=== PATIENT | male | born 1950 | race Caucasian/White ===

== ENCOUNTER 2018-07-30 15:43 | Inpatient (IN) | payer OTHER, MEDICARE ==
--- NOTE | 2018-07-30 17:44 | EDPHY ---
H & P Stated Complaint: cut right finger with knief 10 days ago, increasing swelling/ pain Time Seen by Provider: 07/30/18 17:28 HPI/ROS: CHIEF COMPLAINT: Right index Finger infection HISTORY OF PRESENT ILLNESS: 67-year-old immunocompetent male with out-of-date tetanus, right-hand dominant states that 10 days ago when he was camping he sustained a laceration to his right index finger palmar aspect middle phalanx. Did not seek medical attention at that time. Over the past 7 days he has noted progressive erythema pain and swelling. He has been seen by his PCP as well as a free-standing emergency department, has been on a course of Keflex for the past 3-4 days and notes progressive swelling pain. He denies: Fever, chills, flu-like symptoms, nausea, vomiting, lymphangitic streaking. REVIEW OF SYSTEMS: 10 systems reviewed and negative with the exception of the elements mentioned in the history of present illness PAST MEDICAL & SURGICAL HISTORY: No history of immunocompromise/suppressed condition. Tetanus out-of-date. SOCIAL HISTORY:Single nonsmoker PHYSICAL EXAM (Prior to examination, patient consented to physical exam, hands were washed and my usual and customary physical exam procedures followed) 1) GENERAL: Well-developed, well-nourished, alert and oriented. Appears to be in no acute distress. Smiling cognitive appears well. 2) HEAD: Normocephalic, atraumatic 3) HEENT: Pupils equal, round, reactive to light bilaterally. Sclera anicteric. 4) NECK: Full range of motion, no meningeal signs. 5) LUNGS: Clear auscultation bilaterally, no wheezes, no rhonchi, no retractions. 6) HEART: Regular rate and rhythm, no murmur, no heave, no gallop. 7) ABDOMEN: No guarding, no rebound, no focal tenderness, negative McBurney's, negative Edouard's, negative Rovsing's, negative peritoneal sign, 8) MUSCULOSKELETAL: Right upper extremity: Right index finger positive kanavel sign, notably fusiform shape to finger, unable to actively or passively flex, pain along the flexor tendon sheath, pain with passive extension. Mild erythematous discoloration to the finger. No lymphangitic streaking. No epitrochlear or axillary adenopathy. Otherwise, Moving all extremities, no focal areas of tenderness, no obvious trauma. No peripheral edema or discoloration. 9) BACK: No CVA tenderness, no midline vertebral tenderness, no fluctuance, no step-off, no obvious trauma, no visual or palpable abnormality. 10) SKIN: No rash, no petechiae. 11) Psychiatric: Patient is oriented X 3, there is no agitation. DIFFERENTIAL DIAGNOSIS: In no particular order including but not limited to infectious flexor tenosynovitis, deep space infection, hand abscess - Personal History Current Tetanus/Diphtheria Vaccine: Unsure Current Tetanus Diphtheria and Acellular Pertussis (TDAP): Unsure - Medical/Surgical History Hx Asthma: No Hx Chronic Respiratory Disease: No Hx Diabetes: No Hx Cardiac Disease: No Hx Renal Disease: No Hx Cirrhosis: No Hx Alcoholism: No Hx HIV/AIDS: No Hx Splenectomy or Spleen Trauma: No Other PMH: gout - Social History Smoking Status: Never smoked Constitutional: Initial Vital Signs Temperature (C) 36.4 C 07/30/18 15:49 Heart Rate 94 07/30/18 15:49 Respiratory Rate 18 07/30/18 15:49 Blood Pressure 167/91 H 07/30/18 15:49 O2 Sat (%) 96 07/30/18 15:49 O2 Delivery Mode Room Air Allergies/Adverse Reactions: No Known Allergies Allergy (Verified 07/30/18 18:31) Home Medications: Medication Instructions Recorded Allopurinol [Allopurinol 300 MG 300 mg PO DAILY 07/30/18 (RX)] Amoxicillin/Clavulanate Pot 875 mg PO BID 07/30/18 [Augmentin 875 MG TAB (*)] Herbals/Supplements -Info Only 1 ea PO DAILY 07/30/18 Ibuprofen [Motrin (*)] 800 mg PO BID PRN 07/30/18 [place]-3 Fatty Acids [Fish Oil 1000 1,000 mg PO BID 07/30/18 mg (*)] Medical Decision Making - Diagnostics Imaging Results: Imaging Impressions Finger X-Ray 07/30/18 18:06 Impression: 1. Soft tissue swelling with no acute osseous findings. 2. Additional findings as above. Images reviewed myself ED Course/Re-evaluation: 5:41 p.m.: Patient has failed outpatient therapy, has positive kanavel sign. Recommended admission, will initiate antibiotic therapy with IV vancomycin as he has failed cephalosporin therapy. Will update tetanus. Will obtain x-ray, consult with hospitalist and hand surgeon. I saw this patient independently based on established practice protocols. Care of patient under supervision of secondary supervising physician Dr Elise with whom I discussed case. 6:35 p.m.: Left message with the circulating nurse for Dr. Prosper Armenta who is on-call for and surgery will call me back. 7:09 p.m.: Consultation with hospitalist Dr. Ocampo who will admit patient, request MRI be obtained. Awaiting call back from Dr. Prsoper Armenta 7:38 p.m.: Consultation with Dr. Prosper Armenta who will consult for hand surgery. 9:00 p.m.: Dr. Prosper Armenta has evaluated the patient the ER, recommend cancellation of the MRI as he will be taking the patient to the operating room in the morning. - Data Points Laboratory Results: Laboratory Results 07/30/18 17:45 07/30/18 17:45 07/30/18 07/30/18 17:45 17:45 WBC 8.33 10^3/uL 10^3/uL (3.80-9.50) RBC 4.81 10^6/uL 10^6/uL (4.40-6.38) Hgb 14.6 g/dL g/dL (13.7-17.5) Hct 42.4 % % (40.0-51.0) MCV 88.1 fL fL (81.5-99.8) MCH 30.4 pg pg (27.9-34.1) MCHC 34.4 g/dL g/dL (32.4-36.7) RDW 14.3 % % (11.5-15.2) Plt Count 216 10^3/uL 10^3/uL (150-400) MPV 9.8 fL fL (8.7-11.7) Neut % (Auto) 69.7 % % (39.3-74.2) Lymph % (Auto) 18.5 % % (15.0-45.0) Jack % (Auto) 7.6 % % (4.5-13.0) Eos % (Auto) 3.4 % % (0.6-7.6) Baso % (Auto) 0.4 % % (0.3-1.7) Nucleat RBC Rel Count 0.0 % % (0.0-0.2) Absolute Neuts (auto) 5.82 10^3/uL 10^3/uL (1.70-6.50) Absolute Lymphs (auto) 1.54 10^3/uL 10^3/uL (1.00-3.00) Absolute Monos (auto) 0.63 10^3/uL 10^3/uL (0.30-0.80) Absolute Eos (auto) 0.28 10^3/uL 10^3/uL (0.03-0.40) Absolute Basos (auto) 0.03 10^3/uL 10^3/uL (0.02-0.10) Absolute Nucleated RBC 0.00 10^3/uL 10^3/uL (0-0.01) Immature Gran % 0.4 % % (0.0-1.1) Immature Gran # 0.03 10^3/uL 10^3/uL (0.00-0.10) Sodium 137 mEq/L mEq/L (135-145) Potassium 3.9 mEq/L mEq/L (3.3-5.0) Chloride 101 mEq/L mEq/L (97-110) Carbon Dioxide 26 mEq/l mEq/l (22-31) Anion Gap 10 mEq/L mEq/L (8-16) BUN 20 mg/dL mg/dL (7-23) Creatinine 1.0 mg/dL mg/dL (0.7-1.3) Estimated GFR > 60 Glucose 85 mg/dL mg/dL (70-100) Calcium 9.8 mg/dL mg/dL (8.5-10.4) Medications Given: Discontinued Medications Vancomycin/Sodium Chloride (Vancomycin 1 Gm (Premix)) 250 mls @ 250 mls/hr IV EDNOW ONE PRN Reason: Protocol Stop: 07/30/18 19:20 Last Admin: 07/30/18 19:00 Dose: 250 mls Departure - Departure Disposition: [facility] Inpatient Acute Clinical Impression: Infectious tenosynovitis, Failure of outpatient treatment Condition: Fair
[2018-07-30 18:11] LABS: PLATELET COUNT 216 10^3/uL (150-400)
[2018-07-30] MEDS ORDERED: VANCOMYCIN HCL/NORMAL SALINE 250 ML IV ONE (18:21)
[2018-07-30] MEDS ORDERED: ACETAMINOPHEN 325 MG TAB PO PRN (19:49)
[2018-07-30] MEDS ORDERED: ONDANSETRON 4 MG/2 ML VIAL IVP PRN (19:49)
[2018-07-30] MEDS ORDERED: ZOLPIDEM TARTRATE 5 MG TAB PO PRN (19:49)
--- NOTE | 2018-07-30 20:55 | PDGENHP ---
History and Physical History and Physical: CC: Right 1st finger infection HISTORY: This patient cut his right 1st finger with a sharp object around 10 days ago, flexor aspect. He says the laceration looked deep and he saw white in the bottom of it. However he was able to move his finger full range of motion and with good strength. Gradually the finger begin to get a bit red and swollen. He was seen by his primary care doctor several days ago was prescribed Keflex which he took for 2 and half days. Following that he thought it might look worse so he went to a freestanding ER where he was given a prescription for Augmentin and told to stop the Keflex. At this point he has worsening swelling and pain and decreased range of motion of the finger with the pain and swelling progressing into the palmar aspect of the hand. He has had no fevers. The original laceration is closing and there is no drainage. ROS: A comprehensive 10 system review revealed no other significant findings PAST MEDICAL HISTORY: Gout Arthritis, is to have a total knee replacement done in the near future FAMILY MEDICAL HISTORY: No concerning illnesses he is aware of SOCIAL HISTORY: Very active No tobacco or significant alcohol MEDICATIONS: The patients list has been reconciled by our clinical pharmacist in the EMR. I have reviewed the list and ordered appropriate medicines. PHYSICAL EXAMINATION: Vital Signs: Mildly hypertensive otherwise normal Irrigation Teacher: Examination: General: alert, oriented, good mentation, relaxed Skin: warm, dry, good color, no rash HEENT: normal Neck: no mass or jvd Resps: relaxed Lungs: clear breath sounds Heart: regular, no murmur Abdomen: soft, nondistended, nontender, +BS, no mass Upper Extremities: The right index finger is remarkable for diffuse swelling, some mild skin discoloration with mottling, and some redness, with remarkable decreased range of motion at all joints in the finger though good range of motion at the wrist. There is some edema redness and tenderness on the palmar aspect at and proximal to the 1st finger MTP joint. I do not see anything that looks feels like a joint effusion per se. The original laceration is palmar aspect of the middle phalanx of the 1st finger and is healed closed. There is nothing that looks overtly necrotic. The wrist and forearm look okay Lower Extremities: no edema, warm No Bleeding or bruising Neurologic: normal speech/language, normal manager office services, no focal weakness IV site: looks normal LABORATORY DATA: Unremarkable CBC and chemistry RADIOLOGY STUDIES: I reviewed x-rays of the 1st finger right hand which show evidence of soft tissue edema but no free air and no bony abnormalities ASSESSMENT: * infection of right index finger progressing proximally to the hand, concern for tenosynovitis * unresponsive to outpatient antibiotics PLANS: * Inpatient admission indicated for need for ongoing IV antibiotic at this time * Blood cultures have been obtained; if there is fluid in the finger will want to have samples of that for culture as well * IV vancomycin has been started in the ER * I requested MRI and this was ordered by the ER but is pending * I reviewed with the ER staff also that would be good to have hand surgery involved at this time to formally assess his finger for any potential need for surgery I have reviewed the patient's case in detail with Mp Maguire of the emergency room
--- NOTE | 2018-07-30 21:09 | PDCONSULT ---
Biomass Technician Note: Exam Right Hand Significant swelling and erythema to index finger. Painful ROM. Distal neurovasculature intact. ASSESMENT/PLAN Infected Tenosynovitis Right Index Finger NPO Plan to do an I&D right Index Finger at 6:30AM tomorrow 07/31/18 Patient will be admitted under Hospital Team Infectious Disease should be consulted for post-op ABX follow-up We will have patient follow up at [facility] for post-op followup Bishop TEIXEIRA and Dr. Prosper Armenta (Orthopedic Surgery)
[2018-07-30] MEDS ORDERED: ACETAMINOPHEN 500 MG TAB PO ONE (21:11)
[2018-07-30] MEDS: OMEGA-3 FATTY ACIDS 1,000 MG CAP PO SCH (23:23)
[2018-07-30] MEDS: MELATONIN 3 MG TAB PO SCH (23:42)
[2018-07-30] MEDS: IBUPROFEN 800 MG TAB PO PRN (23:42)
[2018-07-31] MEDS ORDERED: POLYMYXIN B SULFATE 500,000 UNIT/10 ML SYR IRR ONE (05:02)
[2018-07-31] MEDS: VANCOMYCIN 1.25 GM in NS 250 ML IV SCH ×2 (05:37→18:12)
[2018-07-31] MEDS ORDERED: fentaNYL 100 MCG/2 ML INJ ONE ×2 (06:17→07:40)
[2018-07-31] MEDS ORDERED: MIDAZOLAM 2 MG/2 ML VIAL ONE (06:17)
[2018-07-31] MEDS ORDERED: PROPOFOL 200 MG/20 ML VIAL ONE (06:18)
--- NOTE | 2018-07-31 06:19 | PDANEPAE ---
ANE Past Medical History - Pulmonary History Hx Oxygen in Use at Home: No Hx Sleep Apnea: No Sleep Apnea Screening Result - Last Documented: Positive - Endocrine History Hx Diabetes: No - Chronic Pain History Chronic Pain: Yes ANE Review of Systems Review of Systems: ANE Patient History - Allergies Allergies/Adverse Reactions: No Known Allergies Allergy (Verified 07/30/18 18:31) - Home Medications Home Medications: Allopurinol [Allopurinol 300 MG (RX)] 300 mg PO DAILY 07/30/18 [Last Taken 07/30] Amoxicillin/Clavulanate Pot [Augmentin 875 MG TAB (*)] 875 mg PO BID 07/30/18 [ Last Taken 07/30/18 10:00] Herbals/Supplements -Info Only 1 ea PO DAILY 07/30/18 [Last Taken Unknown] Ibuprofen [Motrin (*)] 800 mg PO BID PRN 07/30/18 [Last Taken Unknown] [place]-3 Fatty Acids [Fish Oil 1000 mg (*)] 1,000 mg PO BID 07/30/18 [Last Taken 07/30/18 10:00] - NPO status NPO Since - Liquids (Date): 07/31/18 NPO Since - Liquids (Time): 00:05 NPO Since - Solids (Date): 07/31/18 NPO Since - Solids (Time): 00:05 - Smoking Hx Smoking Status: Never smoked JAILENE Labs/Vital Signs - Labs Result Diagrams: 07/30/18 17:45 07/30/18 17:45 - Vital Signs Blood Pressure: 135/86 Heart Rate: 72 Respiratory Rate: 18 O2 Sat (%): 96 Height: 170.18 cm Weight: 95.25 kg ANE Physical Exam - Airway Neck exam: FROM Mallampati Score: Class 2 Mouth exam: normal dental/mouth exam - Pulmonary Pulmonary: no respiratory distress - Cardiovascular Cardiovascular: regular rate and rhythym - ASA Status ASA Status: II ANE Anesthesia Plan Anesthesia Plan: GA w LMA
[2018-07-31] MEDS ORDERED: METOCLOPRAMIDE 10 MG/2 ML VIAL ONE (06:21)
[2018-07-31] MEDS ORDERED: LIDOCAINE 2% 100 MG/5 ML SYR ONE (06:22)
[2018-07-31] MEDS ORDERED: DEXAMETHASONE 4 MG/ML VIAL ONE (06:22)
[2018-07-31] MEDS ORDERED: oxyCODONE IR 5 MG TAB PO PRN (06:26)
[2018-07-31] MEDS ORDERED: NS 1,000 ML IV SCH (06:30)
[2018-07-31] MEDS ORDERED: fentaNYL 100 MCG/2 ML INJ IVP PRN (07:28)
[2018-07-31] MEDS ORDERED: ALBUTEROL 3 ML DEYVIAL IH PRN (07:28)
[2018-07-31] MEDS ORDERED: MEPERIDINE 25 MG/0.5 ML AMP IVP PRN (07:28)
[2018-07-31] MEDS ORDERED: NALOXONE HCL 0.4 MG/ML INJ IVP PRN (07:28)
[2018-07-31] MEDS ORDERED: HYDROCODONE/APAP 5/325 TAB PO PRN (07:28)
--- NOTE | 2018-07-31 07:28 | POSTANESTH ---
Post Anesthetic Evaluation Cardiovascular Status: Similar to Pre-Op Cond Respiratory Status: Similar to Pre-op Cond. Level of Consciousness/Mental Status: Mildly Sleepy, Arousable Pain Control: Adequate, Prn Tx Ordered Nausea/Vomiting Control: Adequate, Prn Tx Ordered Complications Possibly Related to Anesthesia: None Noted
[2018-07-31] MEDS: ALLOPURINOL 300 MG TAB PO SCH (09:41)
[2018-07-31] MEDS: OMEGA-3 FATTY ACIDS 1,000 MG CAP PO SCH ×2 (09:41→20:46)
--- NOTE | 2018-07-31 10:00 | ASMTCMCOM ---
CM Note CM Note Notes: Patient admitted for infectious tenosynovitis of the R index finger. He is POD #1 I&D and receiving IV antibiotics. ID will see him today. Patient is normally active and independent. Case Managment will follow for any potential discharge needs. Date Signed: 07/31/2018 09:59 AM Electronically Signed By:Nuzhat Babcock RN
[2018-07-31 10:18] LABS: PLATELET COUNT 211 10^3/uL (150-400)
--- NOTE | 2018-07-31 10:27 | PDMN ---
Medical Necessity Medical necessity: Pt meets IP criteria per & RADHA MG-SIC (Systemic or Infectious Condition); est los >2 mn for eval/tx of R index finger infection w/ progression to hand, concern for tenosynovitis & failed outpatient abx; requiring further workup/monitoring, IV abx & ID/Surgery consult; per H&P & order 07/30/18
--- NOTE | 2018-07-31 10:28 | HOSPPROG ---
Hospitalist Progress Note Assessment/Plan: ASSESSMENT: * infection of right index finger progressing proximally to the hand, concern for tenosynovitis * unresponsive to outpatient antibiotics PLANS: * S/p I&D by surgery this AM with wound cultures collected * Started on IV Vancomycin, will continue for now pending culture data * ID consulted for further evaluation of abx regimen * Blood cultures have been obtained Dispo: Likely tomorrow after culture data and ID input is obtained Subjective: Patient reports moderate pain in hand after I&D this AM Objective: Vital Signs Temp Pulse Resp BP Pulse Ox 36.6 C 71 16 146/82 H 95 07/31/18 09:33 07/31/18 09:33 07/31/18 09:33 07/31/18 09:33 07/31/18 09:33 Microbiology 07/31/18 07:00 Gram Stain - Final Finger - Anaerobic Tube/Swab 07/31/18 07:00 Gram Stain - Final Finger - Anaerobic Tube/Swab Laboratory Results 07/31/18 10:01 07/30/18 07/31/18 08/01/18 05:59 05:59 05:59 Intake Total 600 Output Total 0 Balance 600 - Physical Exam Constitutional: no apparent distress Eyes: PERRL Ears, Nose, Mouth, Throat: moist mucous membranes Cardiovascular: regular rate and rhythym Respiratory: no respiratory distress, no rales or rhonchi Gastrointestinal: normoactive bowel sounds, soft, non-tender abdomen Genitourinary: no bladder tenderness Skin: warm, other (Hand wrapped in gauze) Musculoskeletal: pain with ROM Neurologic: AAOx3 Psychiatric: interacting appropriately Lymph, Heme, Immunologic: No ecchymoses, No petechiae ICD10 Worksheet Patient Problems: Problems Problem Status Onset Failure of outpatient treatment Acute Infectious tenosynovitis Acute
[2018-07-31] MEDS ORDERED: PNEUMOC 13-VAL CONJ-DIP CRM/PF 0.5 ML SYR IM ONE (16:33)
--- NOTE | 2018-07-31 19:31 | GCON ---
INFECTIOUS DISEASE CONSULTATION DATE OF CONSULTATION: 07/31/2018 REFERRING PHYSICIAN: Joe Ocampo MD REASON FOR CONSULTATION: Right index finger tenosynovitis. HISTORY OF PRESENT ILLNESS: Patient is a 67-year-old male without significant past medical history w ho sustained a laceration to his right index finger approximately 10 days ago while using a knife. T he patient notes that the laceration was deep and he could see a white structure possibly suggestive of tendon. He did not have any impairment of range of motion of his digit post laceration. The andrews ent was planning to use the knife to cut meat, but had not actually cut any meat prior to his lacerat ion. The patient subsequently went camping in [facility] and did swim in a local mart[place]nez while c amping. Subsequently, the patient developed pain, erythema and swelling of the right index finger, p rompting care in Urgent Care. He was initially treated with cephalexin, but did not show any improve ment in his symptoms. He subsequently was seen in a free standing emergency department where he was changed to Augmentin. He was referred to a hand surgeon with anticipated evaluation on the a.m. of 0 07/30/2018. However, the symptoms progressed and he had difficulty moving his finger and had swelling moving into the palm and other digits. He was no longer able to make a fist. He did not have eryth juan m along the forearm or upper arm. He did not note any drainage from his digit. He did not experie nce associated fevers or chills. Based on his presentation, he was felt to have findings consistent with tenosynovitis. He therefore underwent incision and drainage of his digit this a.m. with Gram st ain showing white blood cells, but no organisms. Cultures are currently pending. The patient notes postoperatively that he has improved range of motion of his other digits. Given the above findings, I am now asked to assist in his ongoing management. PAST MEDICAL HISTORY: Gout. PAST SURGICAL HISTORY: As above, right shoulder surgery. CURRENT MEDICATIONS: Vancomycin 1.25 g IV q.12 hours, allopurinol 300 mg p.o. daily, Motrin as neede d, melatonin 3 mg p.o. at bedtime, fish oil 1000 mg p.o. twice daily. ALLERGIES: No known drug allergies. SOCIAL HISTORY: The patient does not smoke. Drinks wine occasionally. No animal exposures. Recent exposure to martínez as outlined above. FAMILY HISTORY: Gout. REVIEW OF SYSTEMS: Outside that noted in the HPI, the remainder of 10-system review is unremarkable. PHYSICAL EXAMINATION: VITAL SIGNS: Temperature 36.8, heart rate 90, respiratory rate 18, blood pres sure 149/90, oxygen saturation 93% on room air. GENERAL: Patient is an obese male in no acute distr ess. Appears nontoxic. HEENT: There is no scleral icterus, conjunctival injection, or conjunctival petechiae. Oropharynx is clear without lesions. Mucous membranes are moist. There is no nasal dis charge. No tenderness over the sinuses. NECK: Supple without palpable lymphadenopathy or thyromega ly. CHEST: Clear to auscultation bilaterally without adventitious sounds. Respiratory effort is no rmal. CARDIOVASCULAR: Regular rate and rhythm with a 2/6 systolic murmur heard throughout. There a re no gallops or rubs. ABDOMEN: Obese, nontender, nondistended. There is no palpable organomegaly. Bowel sounds are present. MUSCULOSKELETAL: Right index finger and palm are dressed postoperativel y. There is no erythema over the forearm or upper arm. The patient is able to move the 3rd through 5th digits without difficulty. LYMPHATICS: No cervical or supraclavicular nodes. There is no lymph angitis in right upper extremity. NEUROLOGIC: Patient is alert and interacts appropriate with exami ner. Cranial nerves 2 through 12 are grossly intact. Sensation is grossly intact. Muscle tone and bulk are normal. SKIN: No stigmata of endocarditis. Skin is warm and dry to touch. LABORATORY DATA: White blood cell count 8.9, hematocrit 41.5, platelets 211, neutrophils 89%. Serum creatinine is 1.0. Gram stain x2 of operative specimen shows white blood cells with no organisms. Blood cultures x2 are pending. IMPRESSION: Right index finger tenosynovitis after laceration with kitchen knife and subsequent expo sure to martínez water: Most likely, this will be related to gram-positive shahnaz, such as Staphylococcus aureus or beta-hemolytic streptococci. Community associated Staphylococcus aureus is a consideratio n. Other less typical pathogens such as gram-negative rods (for example, Aeromonas) or anaerobes als o of consideration based on mechanism of injury and exposure to martínez water. RECOMMENDATIONS: 1. Agree with empiric vancomycin. 2. Follow up cultures as available. 3. We will hold off on broadening antibiotic therapy unless culture data shows evidence of gram-nega tive shahnaz. 4. Follow clinical response post incision and drainage with ultimate antibiotic therapy plans to be further defined by culture results and clinical course. Thank you for this consultation. We will continue to follow the patient with you. /[id number]/MODL
[2018-07-31] MEDS: IBUPROFEN 800 MG TAB PO PRN (20:45)
[2018-07-31] MEDS: MELATONIN 3 MG TAB PO SCH (22:23)
[2018-08-01] MEDS: VANCOMYCIN 1.25 GM in NS 250 ML IV SCH (06:20)
--- NOTE | 2018-08-01 07:48 | PDCONSULT ---
Jig Builder Note: Had a chance to meet with Gama this AM. He appears to be doing well, and in no significant pain. He denies any numbness or tingling in his fingers, and he is in good spirit. PHYSICAL EXAM: Right Index Finger is wrapped with no active drainage or bandage saturation. Wiggles fingers well. Distal Neurovasculature is intact. ASSESSMENT: Infectious Tenosynovitis Right Index Finger PLAN: Dr. Yañez (ID) has seen and assessed patient with regards to ABX treatment and management, From an ORTHO standpoint, he appears to be doing very well following I&D of his right index finger. He should be OK to be discharged with no Ortho concerns, once Medicine and ID agree. I would like him to follow-up on an outpatient basis with [facility] in about 7-10 days for re-evaluation and suture removal. He should be following-up with Infectious Disease per Dr. Yañez's recommendations. We appreciate this opportunity to have consulted this patient, and if there are any further concerns or needs, please dont hesitate to reach out to Ortho. Bishop Rodarte PA-C (with Dr. Kathi CLEMENS) [facility] Orthopedic Surgery
[2018-08-01 08:05] VITALS: BP 145/94
[2018-08-01] MEDS: ALLOPURINOL 300 MG TAB PO SCH (09:09)
[2018-08-01] MEDS: OMEGA-3 FATTY ACIDS 1,000 MG CAP PO SCH (09:09)
--- NOTE | 2018-08-01 13:35 | PCMIDPN ---
Assessment/Plan: Assessment/Plan: * Right index finger tenosynovitis status post incision and drainage: Operative findings reviewed with Dr. Armenta noting cloudy fluid in tendon sheath. Cultures are no growth to date which may be impacted by prior antibiotic exposure. Finger is significantly improved on examination. Will transition vancomycin to oral Augmentin and doxycycline (doxycycline will add activity against MRSA and Aeromonas) with anticipated 3 week course of therapy. If no isolation of MRSA or Aeromonas, will discontinue doxycycline at his initial office follow-up visit. Side effects of doxycycline discussed with patient including risk of photosensitivity, esophagitis, and need to avoid concomitant calcium intake as well as side effects of Augmentin including potential for diarrhea. 08/01/18 13:32 Subjective: Patient with significant decrease in pain of right index finger and improved range of motion of 3rd through 5th digits. Objective: Vital Signs Temp Pulse Resp BP Pulse Ox 36.4 C 68 16 145/94 H 96 08/01/18 08:02 08/01/18 08:02 08/01/18 08:02 08/01/18 08:02 08/01/18 08:02 Microbiology 07/31/18 07:00 Gram Stain - Final Finger - Anaerobic Tube/Swab 07/31/18 07:00 Gram Stain - Final Finger - Anaerobic Tube/Swab Laboratory Results 07/31/18 10:01 08/01/18 05:45 07/31/18 08/01/18 08/02/18 05:59 05:59 05:59 Intake Total 1450 2000 Output Total 400 Balance 1050 2000 Vancomycin # 2 Blood cultures x2 no growth Finger cultures no growth to date Laboratory Tests 08/01/18 05:45 Vancomycin Trough 10.0 - Physical Exam General Appearance: alert, no apparent distress EENT: No scleral icterus Extremities: inflammation (Right index finger with residual edema and decreased flexion; remainder of digits, palm, and dorsal surface of hand without cellulitis; surgical incisions intact without drainage; no pain with range of motion of wrist; no pain of forearm) Lymphatic: other (No right upper extremity lymphangitis present) ICD10 Worksheet Patient Problems: Problems Problem Status Onset Failure of outpatient treatment Acute Infectious tenosynovitis Acute
--- NOTE | 2018-08-01 16:37 | GDS ---
DISCHARGE DIAGNOSES: Right index finger tenosynovitis secondary to laceration from a knife. CONSULTANTS: 1. Dr. Tesfaye Yañez, Infectious Disease. 2. Dr. Armenta, orthopedic surgeon. HISTORY: For details, please see history and physical dated July 30, 2018. In brief, the patie miesha is a 67-year-old male who cut his right 1st finger with a knife 10 days ago. His finger became gr adually more red and swollen. He was seen by his primary care doctor and started on Keflex, but his symptoms did not improve. He presented to the emergency department, where an x-ray showed soft tissu e edema, but no free air or bony erosions. He was admitted to the hospital for tenosynovitis, and or thopedic surgery consult was obtained. HOSPITAL COURSE: Patient was admitted to the med/surg unit. He was started on IV vancomycin and und erwent an operative incision and drainage by Dr. Armenta, orthopedic surgeon. He remained afebrile thr oughout the hospitalization. He had no leukocytosis or signs of sepsis. His symptoms are significan tly improved. His blood cultures are negative. His intraoperative cultures are also negative. I di scussed the case with Infectious Disease on the day of discharge. He will be discharged home on doxy cycline and Augmentin for a total of 3 weeks, with close followup with the [facility] for Infectio us Disease, as well as Orthopedic Surgery for suture removal. DISPOSITION: Patient is discharged home in stable condition. FOLLOWUP: 1. Dr. Tesfaye Yañez, August 06, 10:[address] Prosper Armenta, orthopedic surgery. DISCHARGE MEDICATIONS: Please see [facility] for completed outpatient medication list. New medication s on discharge include doxycycline 100 mg p.o. b.i.d., #42, no refills; Augmentin 875 p.o. b.i.d., #4 2, no refills. He will continue all other outpatient medications as previously prescribed. /[id number]/MODL
--- NOTE | 2018-08-01 18:44 | ASMTCMCOM ---
CM Note CM Note Notes: BEATRIZ JUAREZ Male : 1950 Emr# [id number] 08/01/18 13:21 - Case Management by Shante Hinds [facility] Num: [id number] : 1950 Patient Age: 67 Chart reviewed and patient discussed in rounds. Medically cleared for discharge per hospital medicine. CM available should needs arise. Plan: Home independently. Initialized on 08/01/18 13:21 - END OF NOTE Date Signed: 08/01/2018 02:25 PM Electronically Signed By:Shante Hinds RN
--- NOTE | 2018-08-01 18:44 | ASMTLACE ---
LOBIT[facility] Length of stay for Answers: 1 day current admission Acuity / Level of Answers: Yes Care: Did the patient have an inpatient admission? # of Emergency department Answers: 1-2 visits in the last 6 months Score: 5 Date Signed: 08/01/2018 02:26 PM Electronically Signed By:Shante Hinds RN
--- NOTE | 2018-08-13 10:21 | GOP ---
DATE OF OPERATION: 07/31/2018 SURGEON: Prosper Armenta MD DEPARTMENT SALES MANAGER: Bishop Rodarte. ANESTHESIA: General. PREOPERATIVE DIAGNOSIS: Right 2nd finger purulent flexor tenosynovitis. POSTOPERATIVE DIAGNOSIS: Right 2nd finger purulent flexor tenosynovitis. PROCEDURE PERFORMED: Incision and drainage, right 2nd finger flexor tendon sheath. FINDINGS: DESCRIPTION OF PROCEDURE: The patient was taken to the operating room, administered general anesthes ia, placed in supine position. The right upper extremity was exsanguinated from the wrist level prox imally. The brachial cuff was elevated to 225 mmHg pressure. Distal incision was made through derma l subcutaneous tissues just crossing the distal interphalangeal flexion crease. A proximal incision was then made over the A1 nikko. The A1 nikko released proximally. There was purulent fluid withi n the sheath. The distal sheath was opened just distal to the A4 nikko. An irrigation was performe d. A pediatric catheter feeding tube was threaded down the sheath, and the sheath was copiously irri gated with a saline solution with Ancef. After appropriate irrigation and debridement, the incisions were loosely closed with 5-0 nylon suture. A sterile compression dressing and splint were applied. The patient tolerated procedure well, was transferred back to Recovery in stable condition. No comp lications. COMPLICATIONS: None. /[id number]/MODL
== END 2018-08-01 14:37 | disposition home or self-care (01) | DRG 514 ==
LOC: OBSVTOIN 19:13 → F1N 21:15
PROVIDERS: ADMIT Internal Medicine; ATTEND Internal Medicine
PROC: 0L970ZZ Drainage of Right Hand Tendon, Open Approach (ICD-10-PCS; principal; 2018-07-31 06:30)
DX: M65.141 Other infective (teno)synovitis, right hand (principal); M10.9 Gout, unspecified; M17.10 Unilateral primary osteoarthritis, unspecified knee; Z23 Encounter for immunization
CPT/HCPCS: 96374; J1100; J2001; J2250; J2704; J2765; J3010; J3370